=== PATIENT | female | born 1980 | race Caucasian/White ===

== ENCOUNTER 2017-02-03 23:59 | Emergency (ER) | payer BC, OTHER ==
[~2017-02-03] VITALS: Ht 162.6 cm; Wt 78.5 kg
[~2017-02-03 23:59] MED LIST: ACET-749 PO; HYDR-3419 PO; IBUP-1050 PO; PRENTAB26
[2017-02-04 00:18] VITALS: TEMP 37.1; Ht 162.6 cm; Wt 78.5 kg
--- NOTE | 2017-02-04 00:33 | EMERGENCY ROOM VISIT NOTE ---
History Report prepared by Scribpatricia: Everton Ramirez Under the Supervision of: Dr. Lenard Bhardwaj D.O. First contact with patient: 00:20 Chief Complaint: FLU LIKE SX Stated Complaint: RUNNY NOSE,COUGHING,VOMITING,DIZZY History of Present Illness The patient is a 36 year old female who presents to the Emergency Room with complaints of persistent flu-like symptoms that started this morning. The patient's symptoms include dizziness, cough, and rhinorrhea. The cough produces yellow sputum. The patient is a smoker. She denies history of pneumonia or bronchitis. She does have history of influenza. Source of History: patient Onset: this morning Position: other (global) Quality: other (flu-like symptoms) Timing: other (persistent) Associated Symptoms: + cough Review of Systems See HPI for pertinent positives and negatives. A total of ten systems were reviewed and were otherwise negative. Past Medical & Surgical Medical Problems: (1) [id number] Surgical Problems: (1) History of tubal ligation (2) History of tubal ligation Family History Diabetes mellitus FHx: cancer FHx: heart disease Hypertension Social History Smoking Status: Current Every Day Smoker Marital Status: Housing Status: lives with family Current/Historical Medications Scheduled Albuterol Hfa (Ventolin Hfa), 2-4 PUFFS INH Q6H Azithromycin (Zithromax Z-Walter), 0 PO UD Scheduled PRN Hydrocodon/Acetaminophen 5MG/300MG (Vicodin (5MG/300MG)), 1-2 TAB PO Q4H PRN for Pain Miscellaneous Medications None (Patient States No Home Meds) Allergies Coded Allergies: No Known Allergies (Unverified , 02/04/17) Physical Exam Vital Signs Date Time Temp Pulse Resp B/P Pulse Ox O2 Delivery O2 Flow Rate FiO2 02/04/17 00:18 37.1 76 18 90/53 97 Room Air Physical Exam GENERAL: Awake, alert, well-appearing, in no distress HENT: Normocephalic, atraumatic. Oropharynx unremarkable. EYES: Normal conjunctiva. Sclera non-icteric. NECK: Supple. No nuchal rigidity. FROM. No JVD. RESPIRATORY: Some rhonchi noted. CARDIAC: Regular rate, normal rhythm. Extremities warm and well perfused. Pulses equal. ABDOMEN: Soft, non-distended. No tenderness to palpation. No rebound or guarding. No masses. RECTAL: Deferred. MUSCULOSKELETAL: Chest examination reveals no tenderness. The back is symmetrical on inspection without obvious abnormality. There is no CVA tenderness to palpation. No joint edema. LOWER EXTREMITIES: Calves are equal size bilaterally and non-tender. No edema. No discoloration. NEURO: Normal sensorium. No sensory or motor deficits noted. SKIN: No rash or jaundice noted. Medical Decision & Procedures ER Provider Diagnostic Interpretation: X-ray: Per my interpretation. Chest One View Portable: No infiltrate. Medications Administered Medications (Trade) Dose Ordered Sig/Solo Route Start Time Stop Time Status Last Admin Dose Admin Albuterol/ Ipratropium (Duoneb) 3 ml NOW STAT INH 02/04/17 00:48 02/04/17 00:51 DC 02/04/17 00:57 3 ML ED Course 0030: The patient was evaluated in room A3. A complete history and physical exam was performed. 0048: DuoNeb 3 ml INH. 0120: I reevaluated the patient. Discussed results and discharge instructions: She verbalized understanding and agreement. The patient is ready for discharge. Medical Decision Differential diagnosis includes bronchitis, pneumonia, and URI. Patient resting in no distress on repeat examination Will treat for bronchitis Impression Primary Impression: Acute bronchitis Scribe Attestation The scribe's documentation has been prepared under my direction and personally reviewed by me in its entirety. I confirm that the note above accurately reflects all work, treatment, procedures, and medical decision making performed by me. Departure Information Dispostion Home / Self-Care Prescriptions Azithromycin (ZITHROMAX Z-WALTER) 250 Mg Tab 0 PO UD, #1 PKT Prov: Lenard Bhardwaj, DO 02/04/17 Albuterol Hfa (VENTOLIN HFA) 200 Puffs/68404 Mcg Aers 2-4 PUFFS INH Q6H, #1 INHALER Prov: Lenard Bhardwaj, DO 02/04/17 Referrals Damon Tavarez M.D. (PCP) Forms HOME CARE DOCUMENTATION FORM, IMPORTANT VISIT INFORMATION Patient Instructions Bronchitis Acute, My [facility] Health Problem Qualifiers Primary Impression: Acute bronchitis Bronchitis organism: unspecified organism Qualified Codes: J20.9 - Acute bronchitis, unspecified
[2017-02-04] MEDS ORDERED: ALBUT/IPRATROP 3MG/0.5MG NEB 3 ML VIAL INH STA (00:48)
[2017-02-04] MEDS ORDERED: ALBUT/IPRATROP 3MG/0.5MG NEB 3 ML VIAL ONE (00:51)
[2017-02-04] MEDS ORDERED: VNTHFA/IN INH (01:17)
[2017-02-04] MEDS ORDERED: AZITTAB PO (01:17)
[2017-02-04] MEDS ORDERED: FLUO40CA8 PO (01:25)
[2017-02-04] MEDS ORDERED: TRAZ50TA35 PO (01:26)
[2017-02-04 01:36] VITALS: BP 96/42; PULSE 74; O2SAT 98
--- NOTE | 2017-02-04 07:07 | DIAGNOSTIC IMAGING REPORT ---
SINGLE VIEW CHEST CLINICAL HISTORY: Cough. FINDINGS: An AP, portable, upright chest radiograph is obtained. No prior studies are available for comparison at the time of dictation. The examination is degraded by portable technique and patient rotation. The cardiomediastinal silhouette is unremarkable. The lungs and pleural spaces are clear. No pneumothorax is seen. The bony thorax is grossly intact. IMPRESSION: No active disease in the chest. Electronically signed by: Patrick Landin M.D. 02/04/2017 7:06 AM Dictated Date/Time: 02/04/2017 7:05 AM
== END 2017-02-04 01:36 | disposition home or self-care (01) ==
LOC: C.EDB 02-04 00:01 → MERGE 02-04 00:01 → C.EDA 02-04 01:36
DX: J20.9 Acute bronchitis, unspecified (principal); Z83.3 Family history of diabetes mellitus; Z82.49 Family history of ischemic heart disease and other diseases of the circulatory system; F17.200 Nicotine dependence, unspecified, uncomplicated

== ENCOUNTER 2017-04-09 16:56 | Emergency (ER) | payer BC, OTHER ==
[~2017-04-09] VITALS: Ht 162.6 cm; Wt 78.9 kg
[~2017-04-09 16:56] MED LIST changes: +FLUO40CA8 PO; -HYDR-3419 PO; +TRAZ50TA35 PO; +VNTHFA/IN INH
[2017-04-09 17:03] VITALS: TEMP 36.7; Ht 162.6 cm; Wt 78.9 kg
[2017-04-09] MEDS ORDERED: SODIUM CHLORIDE 0.9% 1000ML 1,000 ML IV STA (17:16)
--- NOTE | 2017-04-09 17:23 | EMERGENCY ROOM VISIT NOTE ---
History First contact with patient: 17:05 Chief Complaint: ABDOMINAL PAIN Stated Complaint: PAIN IN R SIDE OF ABF History of Present Illness The patient is a 36 year old female who presents to the Emergency Room with complaints of right-sided abdominal pain which began approximately one week. The patient states that she developed symptoms one week ago, but they resolved. She states her symptoms returned yesterday. They were gradual in onset. She reports pain in the right lower abdomen and states that that area is warm to touch. She reports increased frequency of urination. The pain in her abdomen and radiates towards the middle of her abdomen. She rates the overall discomfort a 6/10. The pain is worse with movement. She denies any history of similar symptoms. She denies any history of abdominal surgery, kidney stones or pyelonephritis. She finished her last menstrual period yesterday. She denies nausea, vomiting, dysuria, hematuria, changes in bowel movements or vaginal discharge. Review of Systems A complete 10 point review of systems was reviewed with the patient with pertinent positives and negatives as per history of present illness. All else were negative. Past Medical/Surgical History Medical Problems: (1) [id number] Surgical Problems: (1) History of tubal ligation (2) History of tubal ligation Family History Diabetes mellitus FHx: cancer FHx: heart disease Hypertension Social History Smoking Status: Current Every Day Smoker Marital Status: Housing Status: lives with family Current/Historical Medications Scheduled Buspirone Hcl (Buspirone Hcl), 1 TAB PO BID Fluoxetine (Prozac), 80 MG PO BID Trazodone Hcl (Trazodone), 100 MG PO DAILY Allergies Coded Allergies: No Known Allergies (Verified , 04/09/17) Physical Exam Vital Signs Date Time Temp Pulse Resp B/P (MAP) Pulse Ox O2 Delivery O2 Flow Rate FiO2 04/09/17 19:27 72 20 122/70 99 04/09/17 17:03 36.7 58 18 100/57 98 Room Air Physical Exam VITALS: Vitals are noted on the nurse's note and reviewed by myself. Vital signs stable. GENERAL: This is a 36-year-old female, in no acute distress, nondiaphoretic, well-developed well-nourished. MOUTH: Mucous membranes moist. HEART: Regular rate and rhythm without murmurs gallops or rubs. LUNGS: Clear to auscultation bilaterally without wheezes, rales or rhonchi. ABDOMEN: Positive bowel sounds x 4. Soft, nondistended. Moderate tenderness to palpation of the right lower quadrant. No guarding or rebound tenderness. Negative Rovsing sign. No palpable change in temperature throughout the abdomen. NEURO: Patient was alert and oriented to person place and time. Medical Decision & Procedures ER Provider Diagnostic Interpretation: CT OF THE ABDOMEN AND PELVIS WITH CONTRAST FINDINGS: Lung bases are clear. The liver, spleen, adrenal glands, kidneys and pancreas are normal. There is no hydronephrosis. There is no biliary or pancreatic ductal dilatation. The caliber and wall thickness of small and large bowel are normal. The appendix is normal. There is no free fluid. Note is made of a fat-containing 2.9 cm left ovarian lesion and a 2.1 cm fat-containing right ovarian lesion. There is no significant enlargement of the ovaries. No pneumatosis, free air or portal venous gas is present. There is no evidence for a bowel obstruction. Skeletal structures are unremarkable. IMPRESSION: 1. No acute process within the abdomen or pelvis. Normal appendix. No hydronephrosis. 2. 2.9 cm fat-containing left ovarian lesion and 2.1 cm fat-containing right ovarian lesion. The findings are consistent with bilateral mature ovarian teratomas. Follow-up nonemergent gynecologic consultation is recommended. Laboratory Results 04/09/17 17:30 Red Blood Count 4.41, Mean Corpuscular Volume 94.1, Mean Corpuscular Hemoglobin 30.6, Mean Corpuscular Hemoglobin Concent 32.5, Mean Platelet Volume 9.4, Neutrophils (%) (Auto) 60.0, Lymphocytes (%) (Auto) 31.6, Monocytes (%) (Auto) 6.7, Eosinophils (%) (Auto) 1.2, Basophils (%) (Auto) 0.2, Neutrophils # (Auto) 3.93, Lymphocytes # (Auto) 2.07, Monocytes # (Auto) 0.44, Eosinophils # (Auto) 0.08, Basophils # (Auto) 0.01 04/09/17 17:30 Test 04/09/17 17:30 White Blood Count 6.55 K/uL (4.8-10.8) Red Blood Count 4.41 M/uL (4.2-5.4) Hemoglobin 13.5 g/dL (12.0-16.0) Hematocrit 41.5 % (37-47) Mean Corpuscular Volume 94.1 fL (80-100) Mean Corpuscular Hemoglobin 30.6 pg (25-34) Mean Corpuscular Hemoglobin Concent 32.5 g/dl (32-36) Platelet Count 192 K/uL (130-400) Mean Platelet Volume 9.4 fL (7.4-10.4) Neutrophils (%) (Auto) 60.0 % Lymphocytes (%) (Auto) 31.6 % Monocytes (%) (Auto) 6.7 % Eosinophils (%) (Auto) 1.2 % Basophils (%) (Auto) 0.2 % Neutrophils # (Auto) 3.93 K/uL (1.4-6.5) Lymphocytes # (Auto) 2.07 K/uL (1.2-3.4) Monocytes # (Auto) 0.44 K/uL (0.11-0.59) Eosinophils # (Auto) 0.08 K/uL (0-0.5) Basophils # (Auto) 0.01 K/uL (0-0.2) RDW Standard Deviation 45.6 fL (36.4-46.3) RDW Coefficient of Variation 13.2 % (11.5-14.5) Immature Granulocyte % (Auto) 0.3 % Immature Granulocyte # (Auto) 0.02 K/uL (0.00-0.02) Urine Color YELLOW Urine Appearance CLEAR (CLEAR) Urine pH 6.0 (4.5-7.5) Urine Specific [place] 1.015 (1.000-1.030) Urine Protein NEG (NEG) Urine Glucose (UA) NEG (NEG) Urine Ketones NEG (NEG) Urine Occult Blood NEG (NEG) Urine Nitrite NEG (NEG) Urine Bilirubin NEG (NEG) Urine Urobilinogen NEG (NEG) Urine Leukocyte Esterase NEG (NEG) Urine Test NEG (NEG) Anion Gap 6.0 mmol/L (3-11) Est Creatinine Clear Calc Drug Dose 87.6 ml/min Estimated GFR () 94.2 Estimated GFR (Non- 81.2 BUN/Creatinine Ratio 12.7 (10-20) Calcium Level 8.4 mg/dl (8.5-10.1) Total Bilirubin 0.2 mg/dl (0.2-1) Aspartate Amino Transf (AST/SGOT) 14 U/L (15-37) Alanine Aminotransferase (ALT/SGPT) 31 U/L (12-78) Alkaline Phosphatase 54 U/L (45-117) Total Protein 6.9 gm/dl (6.4-8.2) Albumin 3.3 gm/dl (3.4-5.0) Globulin 3.6 gm/dl (2.5-4.0) Albumin/Globulin Ratio 0.9 (0.9-2) Lipase 167 U/L (73-393) Medications Administered Medications (Trade) Dose Ordered Sig/Solo Route Start Time Stop Time Status Last Admin Dose Admin Sodium Chloride 1,000 ml @ 999 mls/hr Q1H1M STAT IV 04/09/17 17:16 04/09/17 18:16 DC 04/09/17 17:37 999 MLS/HR Morphine Sulfate (MoRPHine SULFATE INJ) 4 mg NOW STAT IV 04/09/17 18:32 04/09/17 18:34 DC 04/09/17 18:42 4 MG ED Course The patient was evaluated as above. Labs were drawn and IV access was obtained. Patient was medicated with 1 L normal saline solution. She initially declined analgesics. Patient requested something for pain and was given [address] abdomen and pelvis was performed and read by radiology as above. Patient was reevaluated and findings were discussed. She feels much better at this time. Discharge instructions were reviewed with the patient. The patient verbalized understanding of my assessment and treatment plan and was discharged home in good condition. Medical Decision Differential diagnosis includes appendicitis, ovarian cyst, ovarian torsion, colitis, gastroenteritis, diverticulitis, urinary tract infection, kidney stone , malignancy, infection, among others. The patient is a 36-year-old female who presents today complaining of intermittent right lower quadrant pain over the past 1 week. Labs revealed no leukocytosis, anemia or concerning electrolyte abnormalities. Urinalysis was not suggestive of infection. Urine was negative. CT of the abdomen and pelvis was performed and showed bilateral ovarian teratomas with no other acute findings within the abdomen. Patient was informed of these findings. She will need to see CLERICAL ADVISER and states she will follow-up with her own CLERICAL ADVISER this week. Conservative measures were discussed. There is no evidence of ovarian torsion at this time, but the patient was instructed to return if she has significantly worsening pain, vomiting or any other new/concerning symptoms. Based on the patient's presentation and work up, I feel the patient is stable for outpatient treatment. The patient was educated to return to the emergency department for any worsening of their current condition or new/concerning symptoms. She will follow up with her CLERICAL ADVISER. Medication reconciliation: I attest that I have personally reviewed the patient 's current medication list. Blood pressure screening: Patient was found to have normal blood pressure on screening and does not require follow-up. Impression Primary Impression: Ovarian teratoma Bilateral mature ovarian teratomas Departure Information Dispostion Home / Self-Care Condition GOOD Referrals Damon Tavarez M.D. (PCP) Patient Instructions My [facility] Additional Instructions You have been treated in the Emergency Department for your Abdominal Pain. Laboratory results and imaging studies have ruled out any emergent causes for your abdominal pain which would warrant admission or surgery. For pain control, you can use the following [id number] medicines (if >12 yo): - Regular strength (325mg/tab) Tylenol (acetaminophen) 2 tabs every 4-6 hours as needed. Do not exceed 12 tablets in a 24 hour period. Avoid taking more than 4 grams (4000 mg) of Tylenol per day. This includes any other sources of acetaminophen you may take on a regular basis. - Regular strength (200 mg/tab) Advil (ibuprofen) 1-2 tabs every 4-6 hours as needed. Do not exceed a dose of 3200 mg per day. Drink plenty of water and stay well hydrated. Follow-up with your CLERICAL ADVISER this week for further evaluation. Return to the emergency room with significantly worsening pain, vomiting, fevers , or any other new/concerning symptoms.
[2017-04-09] MEDS ORDERED: BUSP5TAB59 PO (17:26)
[2017-04-09] MEDS ORDERED: TRAZ100T29 PO (17:26)
[2017-04-09] MEDS ORDERED: OPTIRAY 320 IV PRN (17:30)
[2017-04-09 17:40] LABS: BASO % 0.2 %; BASO ABS # 0.01 K/uL (0-0.2); COMPLETE YES; EOS % 1.2 %; HEMATOCRIT 41.5 % (37-47); IG% 0.3 %; LYMPH % 31.6 %; LYMPH ABS # 2.07 K/uL (1.2-3.4); MEAN CELL VOLUME 94.1 fL (80-100); MEAN CORPUSCULAR HEMOGLOBIN 30.6 pg (25-34); MEAN CORPUSCULAR HGB CONC 32.5 g/dl (32-36); MEAN PLATELET VOLUME 9.4 fL (7.4-10.4); MONO % 6.7 %; PLATELET COUNT 192 K/uL (130-400); RED BLOOD COUNT 4.41 M/uL (4.2-5.4); WHITE BLOOD COUNT 6.55 K/uL (4.8-10.8)
[2017-04-09 17:44] LABS: URINE APPEARANCE CLEAR (CLEAR); URINE BILIRUBIN NEG (NEG); URINE COLOR YELLOW; URINE NITRITE NEG (NEG); URINE SPECIFIC GRAVITY 1.015 (1.000-1.030); UROBILINOGEN NEG (NEG); ZZUR CULT IF INDIC CLEAN CATCH NO
[2017-04-09 17:45] LABS: MANUAL MICROSCOPIC REQUIRED? NO; REVIEW REQ? NO
[2017-04-09 17:57] LABS: BUN/CREATININE RATIO 12.7 (10-20); CALCIUM 8.4 mg/dl (8.5-10.1); CREATININE 0.92 mg/dl (0.60-1.20); POTASSIUM 3.8 mmol/L (3.5-5.1)
[2017-04-09 17:59] LABS: ALB/GLOB RATIO 0.9 (0.9-2)
[2017-04-09] MEDS ORDERED: MoRPHine SULFATE 4 MG/ML 1 ML CARP\\VIAL IV STA (18:32)
--- NOTE | 2017-04-09 18:49 | DIAGNOSTIC IMAGING REPORT ---
CT OF THE ABDOMEN AND PELVIS WITH CONTRAST CLINICAL HISTORY: Right lower quadrant pain. Urinary frequency. COMPARISON STUDY: None. TECHNIQUE: Following IV administration of 94 mL of Optiray-320, axial images of the abdomen and pelvis were obtained from the lung bases to the proximal femurs. Images were reviewed in the axial, sagittal, and coronal planes. IV contrast was administered without complication. A dose lowering technique was utilized adhering to the principles of ALARA. CT DOSE: 415.88 mGy.cm FINDINGS: Lung bases are clear. The liver, spleen, adrenal glands, kidneys and pancreas are normal. There is no hydronephrosis. There is no biliary or pancreatic ductal dilatation. The caliber and wall thickness of small and large bowel are normal. The appendix is normal. There is no free fluid. Note is made of a fat-containing 2.9 cm left ovarian lesion and a 2.1 cm fat-containing right ovarian lesion. There is no significant enlargement of the ovaries. No pneumatosis, free air or portal venous gas is present. There is no evidence for a bowel obstruction. Skeletal structures are unremarkable. IMPRESSION: 1. No acute process within the abdomen or pelvis. Normal appendix. No hydronephrosis. 2. 2.9 cm fat-containing left ovarian lesion and 2.1 cm fat-containing right ovarian lesion. The findings are consistent with bilateral mature ovarian teratomas. Follow-up nonemergent gynecologic consultation is recommended. Electronically signed by: Alexadner Toribio M.D. 04/09/2017 6:47 PM Dictated Date/Time: 04/09/2017 6:41 PM
[2017-04-09 19:27] VITALS: BP 122/70; PULSE 72; O2SAT 99
== END 2017-04-09 19:29 | disposition home or self-care (01) ==
LOC: C.EDB 16:57
DX: D27.0 Benign neoplasm of right ovary (principal); D27.1 Benign neoplasm of left ovary; F17.200 Nicotine dependence, unspecified, uncomplicated; Z98.51 Tubal ligation status; Z83.3 Family history of diabetes mellitus; Z82.49 Family history of ischemic heart disease and other diseases of the circulatory system